=== PATIENT | male | born 1970 | race African-American/Black ===

== ENCOUNTER 2024-09-19 10:47 | Outpatient (AMB) | payer OTHER, SELFPAY ==
--- NOTE | 2024-09-19 10:56 | MHC.OFFVIS ---
Vital Signs 09/19/24 10:57 Height 5 ft 10 in Weight 243 lb BMI 34.9 BP 144/90 H Blood Pressure Location Lt brachial Position Sitting Respiration 18 Pulse 79 Pulse Source Pulse Oximeter Pulse Oximetry (%) 100 Oxygen Delivery Method Room Air Intake Visit Reasons: Neck pain Allergies No Known Allergies Allergy (Verified 09/19/24 10:55) HPI Comments Details: Kieran is very pleasant 54 years old gentleman who presents in my office with complains on pain in the posterior neck with radiation into bilateral shoulders as well as radiation into the or coinciding with pain in the epigastric area with radiation into bilateral under costal area as well as radiation into the lower thoracic spine. He reports that this pain started in 2018 when he hit his head against the metal door. He reports that abdominal pain also increases after greasy meals. Bowel movements not aggravate his pain in the abdomen. Flexing head forward and flexing had backwards aggravate the pain in the neck. Because of his pain he can not sleep normally can not do activities of daily living can not take care of himself he can not function normally. In terms of tissue damage he reports his pain as stabbing lancinating sharp cutting lacerating, pinching cramping crushing dull, hurting, heavy sensation. For his neck pain he went for multiple serious of physical therapy with no improvement. In fact physical therapy last time made his pain worse. He went for images of the cervical spine and it demonstrated bulging discs ?. He reports today that he has at home multiple images reports but he forgot to bring them with him today. He reports that he had multiple steroid injections with [facility] pain management those were steroid injections in his neck, he reported that it send his hemoglobin A1c to numbers above 9. He is very cautious about accepting steroid injections. His past medical history significant for diabetes reports that it is diet controlled. Past surgical history significant for ankle arthrodesis secondary to fracture, no other surgeries. He admits smoking cigarettes less than 1 pack per day. He drinks 5 cans of beer every other week, he admits coffee and caffeinated beverages but not soda, he admits cannabis he states that 1 joint lasts 3 days for him. Review of Systems Const All systems reviewed & are unremarkable except as noted in HPI and below ENT Reports Normal hearing present Neuro Reports Normal hearing present, Denies Abnormal speech present, Denies confusion and Denies Sensory deficit (Neuro) Psych Denies confusion Physical Exam Vital Signs: Last Vital Signs Pulse 79 09/19/24 10:57 Resp 18 09/19/24 10:57 BP 144/90 H 09/19/24 10:57 Pulse Ox 100 09/19/24 10:57 Oxygen Delivery Method Room Air 09/19/24 10:57 BMI result Body Mass Index 34.9 Const General: no acute distress; No confusion Orientation/consciousness: patient oriented x3 and No confusion Eyes General: appearance normal, both eyes and all related structures Pupils: Equal, round and reactive pupils present EOM: EOMs intact bilaterally Neck Neck: Yes full ROM Chest Chest palpation & inspection: normal inspection of the chest Resp Effort & Inspection: normal respiratory effort, able to speak in complete sentences, normal respiratory pattern, no audible wheezes and no cough Cardio Jugular venous distension: no JVD GI Other: Minor tenderness on palpation in the projection of the epigastric area, no guarding, no rebound. On percussion the liver is 3 cm below the costal margin. Nontender on palpation. Inspection: Yes normal to inspection Neuro General: patient oriented x3, gait normal and No confusion Cranial nerves: Yes CN's II-XII intact bilaterally, Yes Equal, round and reactive pupils present, Yes Normal hearing present and Yes Ability to bilaterally elevate shoulders present Speech: No Abnormal speech present Gait exam (Neuro): Normal gait present Motor exam (neuro): 5/5 motor strength present throughout Sensory Exam: No Sensory deficit (Neuro) Extrem General: No pedal edema Psych Speech and movement: Normal speech and movement present Affect: normal affect Attitude: cooperative Thought process: Normal thought process present Thought content: Normal thought content present Insight: Good insight present (Psych) Judgement: Good judgement present (Psych) Assessment & Plan Assessment & Plan (1) Chronic abdominal pain: Code(s): R10.9 - Unspecified abdominal pain; G89.29 - Other chronic pain Category: Medical (2) Spondylosis of cervical spine: Code(s): M47.812 - Spondylosis without myelopathy or radiculopathy, cervical region Category: Medical Plan: Because of the chronic abdominal pain which radiates into subcostal areas as well as into his back which possibly exacerbated by intake of greasy food I suspect that this patient might have pancreatitis. I will send him for lipase, amylase, CMP and CBC. I also will perform diagnostic medial branch block C4, C5, C6 bilateral to confirm my diagnosis of spondylosis of cervical spine. If this spondylotic diagnosis will be confirmed by the injection I will offer him sprint PNS. I will see this patient in 1 week to evaluate the results of the diagnostic blood studies as above. (3) Chronic pain syndrome: Code(s): G89.4 - Chronic pain syndrome Category: Medical Plan Next appointment in 1 week. Orders: Orders Lipase Today G89.29 - Other chronic pain, R10.9 - Unspecified abdominal pain Complete Blood Count Auto Diff Today G89.29 - Other chronic pain, R10.9 - Unspecified abdominal pain Comprehensive [place]. Panel Fast Today G89.29 - Other chronic pain, R10.9 - Unspecified abdominal pain Amylase Today G89.29 - Other chronic pain, R10.9 - Unspecified abdominal pain Patient Instructions: I here by testify that I spent 45 minutes in conversation with this patient as well as planning his care and organizing this note. Coding Level of Care Code New Pt Level 4 (27752) Diagnoses Chronic abdominal pain R10.9; G89.29 Spondylosis of cervical spine M47.812 Chronic pain syndrome G89.4
[2024-09-19 10:57] VITALS: BP 144/90; PULSE 79; RESP 18; O2SAT 100; BMI 34.9
--- OUTSIDE RECORDS SUMMARY | 2024-09-19 11:25 | XMS_ITS | Clinical Summary ---
Author Organization [facility] Address [address] [place] [address] Phone Care Team Providers Care Laboratory Tech Name Role Phone Chase Sykes MD Primary Care Provide r Allergies Active Allergy Reactions Criticality Noted Date Comments Bee Venom Protein (Honey Bee) 2023 Penicillins 02/14/2024 Medications oxyCODONE (ROXICODONE) 5 mg immediate release tabletIndication s:Chronic neck pain Take 1 tablet (5 mg total) by mouth every 8 (eight) hours if needed for severe pain. Max Daily Amount: 15 mg 12 tablet 06/29/2024 Active Active Problems No known active problems Encounters Date Type Department Care Team Description 07/14/2024 12:29 AM EDT - 07/14/2024 1:35 AM EDT Emergency [facility] Emergency [address] [place] [phone] Discharge Disposition: Home or Self Care 07/02/2024 7:55 PM EDT - 07/02/2024 10:53 PM EDT Emergency [facility] Emergency [address] [place] [phone] Chronic bilateral thoracic back pain (Primary Dx) Discharge Disposition: Home or Self Care 06/29/2024 9:58 PM EDT - 06/29/2024 10:22 PM EDT Emergency [facility] Emergency [address] [place] [phone] Chronic neck pain (Primary Dx) Discharge Disposition: Home or Self Care 06/25/2024 4:58 PM EDT - 06/25/2024 6:37 PM EDT Emergency [facility] Emergency [address] [place] [address] Discharge Disposition: Home or Self Care from Last 3 Months Surgical History Surgery Date Site/Laterality Comments ANKLE SURGERY 09/19/2014 Left PROCEDURE: HISTORICAL ANKLE SURGERY; COMMENT: Dr Briones- CHRISTIANO WISDOM TOOTH EXTRACTION PROCEDURE: HISTORICAL WISDOM TEETH EXTRACTION Medical History Medical History Date Comments Substance abuse ([facility] [place] , [facility] V28) 01/30/2017 DX:Substance abuse ([facility]); 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 PVD (peripheral vascular dis ease) ([facility] [place]24) 01/30/2017 DX:PVD (peripheral vascular disease) ([facility]) Pes planus 01/30/2017 DX:Pes planus Uncontrolled type 2 diabetes mellitus without complication, without long-term current use of insulin 01/31/2017 DX:Uncontrolled type 2 diabe nate mellitus without complication, without long-term current use of insulin HLD (hyperlipidemia) 07/24/2017 DX:HLD (hyp erlipidemia) TMJ (temporomandibular joint disorder) 8 DX:TMJ (temporomandibular joint disorder) Tobacco abuse 11/24/2018 DX:Tobacco abuse Family History Medical History Relation Name Comments Diabetes Aunt maternal No Known Problems Brother 1 No Known Problems Brother 2 Glaucoma Brother 3 Diabetes Father Prostate cancer Father No Known Problems Maternal Grandfather No Known Problems Maternal Grandmother Diabetes Mother No Known Problems Other No Known Problems Paternal Grandfather No Known Problems Paternal Grandmother No Known Problems Uncle Blindness Neg Hx Breast cancer Neg Hx Cataracts Neg Hx Macular degeneration Neg Hx Strabismus Neg Hx Relation Name Status Comments Aunt Brother 1 Alive Brother 2 Alive Brother 3 Alive Father Maternal Grandfather Maternal Grandmother Mother Alive Other Paternal Grandfather Paternal Grandmother Uncle Social History Tobacco Use Types Packs/Day Years Used Date Smoking Tobacco: Light Smoker Cigarettes Smokeless Tobacco: Never Alcohol Use Standard Drinks/Week Comments No 0 (1 standard drink = 0.6 oz pur e alcohol) Sex and Gender Information Value Date Recorded Sex Assigned at Male 06/17/2024 12:03 PM EDT Legal Sex Male 10:13 PM EST Gender Identity Male 06/17/2024 12:03 PM EDT Sexual Orientation Straight 06/17/2024 12 :03 PM EDT Obstetrics History Last Filed Vital Signs Vital Sign Reading Time Taken Comments Blood Pressure 173/101 07/14/2024 12:35 AM EDT Pulse 61 07/14/2024 12:35 AM EDT Temperature 36.9 C (98.4 F) 07/14/2024 12:35 AM EDT Respiratory Rate 16 07/14/2024 12:35 AM EDT Oxygen Saturation 95% 07/14/2024 12:35 AM EDT Inhaled Oxygen Concentration - - Weight 109 kg (241 lb) 07/14/2024 12:35 AM EDT Height 177.8 cm (5' 10 ) 07/14/2024 12:35 AM EDT Body Mass Index 34.58 07/14/2024 12:35 AM EDT Plan of Treatment Health Maintenance Due Date Last Done Comments Diabetes: Annual Foot Exam 1981 Diabetes: Annual Retina Eye Exam 1981 Hepatitis A Vaccines (1 of 2 - Risk 2-dose series) 1990 Hepatitis B Vaccines (1 of 3 - 19+ 3-dose series) 1990 Pneumococcal Vaccine: 50+ Years (2 of 2 - PCV) 04/25/2018 04/25/2017, 09/20/2014 COVID-19 Vaccine (3 - Pfizer risk series) 11/26/2020 10/29/2020, 10/07/2020 Zoster Vaccines (1 of 2) 2021 Colorectal Cancer Screening: Colonoscopy 02/05/2022 Depression Screening 02/05/2022 HIV Screening 02/05/2022 Social Influencers of Health Screening 02/05/2022 Diabetes: Annual Urine Albumin-Creatinine Ratio (uACR) 05/05/2023 05/04/2022 Diabetes: Blood Sugar Control Test (HGBA1C) 09/04/2024 03/07/2024, 01/02/2024 Influenza Vaccine (#1) 2024 9, 01/30/2017, 02/19/2016, Additional history exists Diabetes: Annual GFR (Glomerular Filtration Rate) 06/17/2025 06/17/2024, 05/26/2024, 03/07/2024, Additional history exists Cholesterol Screening (Lipid Panel) 05/05/2027 05/04/2022 DTaP,Tdap,and Td Vaccines (3 - Td or Tdap) 02/12/2029 02/12/2019, 10/19/2009 Hepatitis C Screening Completed 11/18/2021 HIB Vaccines Aged Out No longer eligi ble based on patient's age to complete this topic HPV Vaccines Aged Out No longer eligi ble based on patient's age to complete this topic IPV Vaccines Aged Out No longer eligi ble based on patient's age to complete this topic MMR Vaccines Aged Out No longer eligi ble based on patient's age to complete this topic Meningococcal ACWY Vaccine Aged Out N o longer eligible based on patient's age to complete this topic Meningococcal B Vaccine Aged Out No l onger eligible based on patient's age to complete this topic RSV Immunization Patients Under 20 months Aged Out No longer eligible based on patient's age to complete this topic Varicella Vaccines Aged Out No longer eligible based on patient's age to complete this topic Procedures Procedure Name Priority Date/Time Associated Diagnosis Comments COMPREHENSIVE METABOLIC PANEL STAT 06/17/2024 10:12 AM EDT from Last 3 Months or Most Recently Relevant to Health Maintenance Results * (ABNORMAL) Comprehensive metabolic panel (06/17/2024 10:12 AM EDT) Sodium 138 133 - 145 mmol/L LAB CHEMISTR[facility] Potassium 3.9 3.5 - 5.5 mmol/L LAB CHEMISTRY METHOD 06/17/2024 10:55 AM [facility] Chloride 104 96 - 110 mmol/L LAB CHEMISTRY METHOD 06/17/2024 10:55 AM [facility] CO2 30 21 - 32 mmol/L LAB CHEMISTRY METHOD 06/17/2024 10:55 AM [facility] Anion Gap 4 3 - 11 LAB CHEMISTRY METHOD 06/17/2024 10:55 AM [facility] Glucose 238(H) 70 - 100 mg/dL LAB CHEMISTRY METHOD 06/17/2024 10:55 AM [facility] BUN 14 5 - 25 mg/dL LAB CHEMISTRY METHOD 06/17/2024 10:55 AM [facility] Creatinine 0.88 0.70 - 1.30 mg/dL LAB CHEMISTRY METHOD 06/17/2024 10:55 AM [facility] eGFR 103 >=60 mL/min/1. 73m2 LAB CHEMISTRY METHOD 06/17/2024 10:55 AM [facility] Comment:Calculation based on the Chronic Kidney Disease Epidemiology Collaboration (CKD-EPI) equation refit without adjustment for race. BUN/Creatinine Ratio 15.9 LAB CHEMISTRY METHOD 06/17/2024 10:55 AM [facility] Calcium 9.7 8.5 - 10.5 mg/dL LAB CHEMISTRY METHOD 06/17/2024 10:55 AM [facility] AST (SGOT) 9(L) 10 - 42 unit/L LAB CHEMISTRY METHOD 06/17/2024 10:55 AM [facility] ALT (SGPT) 26 10 - 60 unit/L LAB CHEMISTRY METHOD 06/17/2024 10:55 AM [facility] Alkaline Phosphatase 129(H) 42 - 121 unit/L LAB CHEMISTRY METHOD 06/17/2024 10:55 AM [facility] Total Protein 7.4 6.0 - 8.0 g/dL LAB CHEMISTRY METHOD 06/17/2024 10:55 AM [facility] Albumin 3.5 3.2 - 5.0 g/dL LAB CHEMISTRY METHOD 06/17/2024 10:55 AM [facility] Total Bilirubin 0.3 0.0 - 1.4 mg/dL LAB CHEMISTRY METHOD 06/17/2024 10:55 AM [facility] Blood Venous blood specimen / Unknown Venipuncture / Unknown 06/17/2024 10:12 AM EDT 06/17/2024 10:17 AM EDT us Parker Doty MD LAB BLOOD ORDERABLES Final Resu lt [facility] [address] [place] [address], from Last 3 Months or Most Recently Relevant to Health Maintenance Insurance [facility] [employer] Care Teams Laboratory Tech Relationship Specialty Start Date End Date Chase Sykes MD [address] [place] [address] PCP - General Internal Medicine 02/15/24
== END 2024-09-19 11:22 | disposition home or self-care (01) ==
PROVIDERS: Visit Provider Anesthesiology
DX: R10.9 Unspecified abdominal pain (principal); G89.29 Other chronic pain; M47.812 Spondylosis without myelopathy or radiculopathy, cervical region; G89.4 Chronic pain syndrome
CPT/HCPCS: 99204

== ENCOUNTER 2024-09-19 10:47 | Outpatient (REF) | payer OTHER, SELFPAY ==
[2024-09-19 11:57] LABS: MANUAL DIFF FLAG NO
--- OUTSIDE RECORDS SUMMARY | 2024-09-19 12:16 | XMS_ITS | Encounter Summary ---
Author Organization [facility] Address [address] [place] [address] Care Team Providers Care Sql Server Dba Name Role Phone Jonel Ramirez MD Primary Care Provider [phone] Chetan Thomas MD Primary Care Provider Klaudia salvador Reason for Visit * Reason Onset Date Comments Testing 09/29/2020 Encounter Details Date Type Department Care Team Description 09/29/2020 Telephone Radiology - [address] [id number] Jonel Ramirez MD [address] [place] [address] Testing Social History Tobacco Use Types Packs/Day Years Used Date Smoking Tobacco: Light Smoker Cigarettes 0.5 Smokeless Tobacco: Never Comments:1 pack in a day Alcohol Use Standard Drinks/Week Comments No 0 (1 standard drink = 0.6 oz pur e alcohol) Sex Assigned at Date Recorded Not on file Job Start Date Occupation Industry Not on file Not on file Not on file documented as of this encounter Miscellaneous Notes * Telephone Encounter - Anita Kruger M.A - 09/29/2020 11:23 AM EDT Spoke to patient please call him to book CT scan of his chest. Patient already seen GI for his abdominal issues. * Telephone Encounter - Jonel Ramirez MD - 09/29/2020 11:13 AM EDT Please inform the patient that the CAT scan of the chest is ordered to follow-up on his lung nodules. This is a yearly surveillance and to make sure they have not increased in size. For any other abdominal issues, he can set up an appointment with my team to be evaluated. * Telephone Encounter - Monika Woods - 09/29/2020 10:58 AM EDT Called patient to book ct of chest but he says there is nothing wrong with his lungs but he is having intestinal problems that need to be dealt with. He would like a call back to see what is the nextstep. documented in this encounter Plan of Treatment Not on file documented as of this encounter Visit Diagnoses Not on filedocumented in this encounter Care Teams Sql Server D[employer] Relationship Specialty Start Date End Date Jonel Ramirez MD [address] [place] [id number] PCP - General Internal Medicine 08/14/17 12/09/20 Chetan Thomas MD [address] [place] [id number] PCP - General Internal Medicine 12/10/20 documented as of this encounter
--- OUTSIDE RECORDS SUMMARY | 2024-09-19 12:16 | XMS_ITS | Clinical Summary ---
Author Organization [facility] Address [address] [place] [address] Care Team Providers Care Manager Presentation Name Role Phone Jonel Ramirez MD Primary Care Provider [phone] Allergies Active Allergy Reactions Criticality Noted Date Comments Bee Sting 08/21/2018 Penicillins 08/21/2018 Medications Medication Sig Dispensed Refills Start Date End Date Status aspirin EC 81 MG tablet Take 81 mg by mouth daily. 0 Active METFORMIN HCL PO Take 500 mg by mouth 2 (two) times a day. 0 Active ATORVASTATIN CALCIUM PO Take by mouth. 0 Active METHADONE HCL PO Take 40 mg by mouth daily. 0 Active cholecalciferol (VITAMIN D3) 1000 units tablet Take 1,000 Units by mouth daily. 0 Active ibuprofen (ADVIL,MOTRIN) 200 MG tablet Take 800 mg by mouth every 6 (six) hours as needed for pain. 0 Active Active Problems No known active problems Social History Tobacco Use Types Packs/Day Years Used Date Smoking Tobacco: Every Day Smokeless Tobacco: Never Alcohol Use Standard Drinks/Week Comments No 0 (1 standard drink = 0.6 oz pur e alcohol) Sex and Gender Information Value Date Recorded Sex Assigned at Not on file Gender Identity Not on file Sexual Orientation Not on file Last Filed Vital Signs Vital Sign Reading Time Taken Comments Blood Pressure 140/83 05/30/2019 10:11 AM EDT Pulse 64 05/30/2019 10:11 AM EDT Temperature 36.4 C (97.5 F) 05/30/2019 10:11 AM EDT Respiratory Rate - - Oxygen Saturation - - Inhaled Oxygen Concentration - - Weight 124.9 kg (275 lb 6.4 oz) 020 10:11 AM EDT Height 177.8 cm (5' 10 ) 05/30/2019 10: 11 AM EDT Body Mass Index 39.52 05/30/2019 10:11 AM EDT Plan of Treatment Health Maintenance Due Date Last Done Comments Hepatitis B Vaccines (1 of 3 - 3-dose series) 1971 Hepatitis C Screening 1971 COVID-19 Vaccine (#1) 1971 Depression Screening 1983 Preventative Health Evaluation 1989 Tobacco Cessation Counseling 1989 Colon Cancer Screening (Colonoscopy) 02/23/2016 Pneumococcal Vaccine (2 of 2 - PCV) 04/25/2018 04/25/2017 Shingrix-Zoster Vaccine (1 o f 2) 2021 Influenza Vaccine (#1) 2024 9, 01/30/2017 DTap / Tdap / Td (2 - Td or Tdap) 02/12/2029 02/12/2019 RSV Ped < 20 months Aged Out No longe r eligible based on patient's age to complete this topic Care Teams Manager Presentation Relationship Specialty Start Date End Date Jonel Ramirze MD [address] [place] [id number] PCP - General Internal Medicine 08/21/18
[2024-09-19 12:22] LABS: Hematocrit 36.2 % (42.0-52.0); Hemoglobin 11.5 g/dl (14.0-18.0); Imm Gran Abs Auto 0.07 X10*3/uL (0.00-0.03); Imm Gran Pct Auto 0.9 % (0.0-0.4); Lymphocytes Absolute Auto 2.3 X10*3/uL (1.2-4.9); Mean Corpuscular HGB Conc 31.8 g/dl (31.0-36.0); Mean Corpuscular Hemoglobin 30.5 pg (27.0-33.0); Mean Corpuscular Volume 96.0 fL (80.0-98.0); NRBC Abs Auto 0.000 X10*3/uL (0.0-0.012); NRBC Pct Auto 0.0 /100WBC (0.0-0.2); Platelet Count 180 X10*3/uL (160-400); Red Blood Count 3.77 X10*6/uL (4.60-5.80); White Blood Count 7.7 X10*3/uL (4.8-10.8)
[2024-09-19 12:49] LABS: Alanine Aminotransferase 38 U/L (0-40); Albumin Level 4.3 g/dL (3.5-5.0); Alkaline Phosphatase 151 U/L (39-117); Amylase 48 U/L (28-100); Anion Gap 10 (12-20); Aspartate Amino Transferase 26 U/L (5-37); Blood Urea Nitrogen 16 mg/dL (9-16); Calcium 9.4 mg/dL (8.4-10.2); Carbon Dioxide 30 mmol/L (22-29); Chloride 106 mmol/L (96-108); Estimated Glomerular Filt Rate > 60; Lipase 23 U/L (8-78); Potassium 3.9 mmol/L (3.3-5.1); Sodium 142 mmol/L (135-145); Total Protein 7.6 g/dL (6.5-8.0)
== END 2024-09-19 10:48 | disposition home or self-care (01) ==
LOC: HO.LAB 10:47
PROVIDERS: Visit Provider Anesthesiology
DX: M47.812 Spondylosis without myelopathy or radiculopathy, cervical region (principal); M54.2 Cervicalgia; R10.13 Epigastric pain; G89.4 Chronic pain syndrome
CPT/HCPCS: 36415; 80053; 82150; 83690; 85025; 99202

== ENCOUNTER 2024-09-26 11:55 | Outpatient (AMB) | payer OTHER, SELFPAY ==
--- NOTE | 2024-09-26 11:59 | A.OFFVIS_ITS ---
Vital Signs 09/26/24 12:00 Weight 243 lb BP 167/85 H Blood Pressure Location Lt brachial Position Sitting Respiration 20 Pulse 76 Pulse Source Pulse Oximeter Pulse Oximetry (%) 94 Oxygen Delivery Method Room Air Intake Visit Reasons: 1 week Irrigation Foreman Required: No Allergies No Known Allergies Allergy (Verified 09/26/24 11:59) HPI Comments Details: Kieran is back in my office 1 week after I sent him for battery of lab tests to rule out pancreatitis. Amylase and lipase are normal, therefore patient does not have pancreatitis. His epigastric pain therefore is not related to pancreatitis however his alk phos is elevated. It maybe related to bowel obstruction. I recommended him to go to his primary care physician and have him to work him up for the gallstones or CBD stenosis. As of his cervical pain he brought today report of the MRI he had done at [facility]. The full report of the MRI dictated as below. It is very prominent for multilevel severe foraminal stenosis and moderate spinal canal stenosis. At the same time role of spondylosis in his pain syndrome can not be excluded. I schedule him for diagnostic medial branch block, C4-C5 C6 bilateral. He requests me to send him for 2nd opinion with neurosurgeon. I need to send him for fresh MRI to perform this consult because his MRI is 9-month-old. Prior: complains on pain in the posterior neck with radiation into bilateral shoulders as well as radiation into the or coinciding with pain in the epigastric area with radiation into bilateral under costal area as well as radiation into the lower thoracic spine. He reports that this pain started in 2018 when he hit his head against the metal door. He reports that abdominal pain also increases after greasy meals. Bowel movements not aggravate his pain in the abdomen. Flexing head forward and flexing had backwards aggravate the pain in the neck. Because of his pain he can not sleep normally can not do activities of daily living can not take care of himself he can not function normally. For his neck pain he went for multiple serious of physical therapy with no improvement. In fact physical therapy last time made his pain worse. He went for images of the cervical spine and it demonstrated bulging discs ?. He reports today that he has at home multiple images reports but he forgot to bring them with him today. He reports that he had multiple steroid injections with [facility] pain management those were steroid injections in his neck, he reported that it send his hemoglobin A1c to numbers above 9. He is very cautious about accepting steroid injections. His past medical history significant for diabetes reports that it is diet controlled. Past surgical history significant for ankle arthrodesis secondary to fracture, no other surgeries. He admits smoking cigarettes less than 1 pack per day. He drinks 5 cans of beer every other week, he admits coffee and caffeinated beverages but not soda, he admits cannabis he states that 1 joint lasts 3 days for him. Review of Systems Const All systems reviewed & are unremarkable except as noted in HPI and below ENT Reports Normal hearing present Neuro Reports Normal hearing present, Denies Abnormal speech present, Denies confusion and Denies Sensory deficit (Neuro) Psych Denies confusion Physical Exam Vital Signs: Last Vital Signs Pulse 76 09/26/24 12:00 Resp 20 09/26/24 12:00 BP 167/85 H 09/26/24 12:00 Pulse Ox 94 09/26/24 12:00 Oxygen Delivery Method Room Air 09/26/24 12:00 Const General: no acute distress; No confusion Orientation/consciousness: patient oriented x3 and No confusion Eyes General: appearance normal, both eyes and all related structures Pupils: Equal, round and reactive pupils present EOM: EOMs intact bilaterally Neck Other: Limited range of motion of the cervical spine. Axial compression aggravates the pain, flexing had backwards aggravate the pain. Chest Chest palpation & inspection: normal inspection of the chest Resp Effort & Inspection: normal respiratory effort, able to speak in complete sentences, normal respiratory pattern, no audible wheezes and no cough Cardio Jugular venous distension: no JVD GI Other: Minor tenderness on palpation in the projection of the epigastric area, no guarding, no rebound. On percussion the liver is 3 cm below the costal margin. Nontender on palpation. Inspection: Yes normal to inspection Neuro General: patient oriented x3, gait normal and No confusion Cranial nerves: Yes CN's II-XII intact bilaterally, Yes Equal, round and reactive pupils present, Yes Normal hearing present and Yes Ability to bilaterally elevate shoulders present Speech: No Abnormal speech present Gait exam (Neuro): Normal gait present Motor exam (neuro): 5/5 motor strength present throughout Sensory Exam: No Sensory deficit (Neuro) Extrem General: No pedal edema Psych Speech and movement: Normal speech and movement present Affect: normal affect Attitude: cooperative Thought process: Normal thought process present Thought content: Normal thought content present Insight: Good insight present (Psych) Judgement: Good judgement present (Psych) Results Reviewed Results Reviewed: Cervical spine MRI [facility] 01/22/2024. Findings: Cervical lordosis is straightened. Thoracic kyphosis is maintained. Vertebral body heights are preserved. Abnormal marrow signal throughout the cervical and thoracic spine with T2 star hyperintensity most notable at the C4- T1 and T8-T9 vertebral bodies. Slight increased since prior of MRI of 2022. Multifocal areas of T1 and T2 hypointensity suggest sclerosis. Partial disc space height loss and disc desiccation throughout the cervical and thoracic spine. Evaluation of the cord signal abnormalities is limited although no definite focal signal abnormalities present. Suggestion of the congenital narrowing of the spinal canal. Superimposed posterior disc osteophyte complex disease uncovertebral and facet arthropathy throughout the cervical spine resulting in canal and foraminal narrowing described below. C2-C3: Mild canal narrowing moderate right foraminal narrowing. C3-C4 moderate canal narrowing: Severe bilateral foraminal narrowing, right worse than left. C4-C5 moderate canal narrowing. Severe bilateral foraminal narrowing. C5-C6: Moderate canal narrowing. Severe bilateral foraminal narrowing right worse than left. C6-C7 moderate canal narrowing. Severe bilateral foraminal narrowing. C7-T1 moderate canal narrowing. Moderate to severe bilateral foraminal narrowing. Small multilevel disc and facet arthropathy results in mild multilevel canal narrowing throughout the thoracic spine. Up to moderate narrowing of the right T2-T3 right T3-T4 right T4-T5 right T6-T7 bilateral T7-T8 right T8-T9 and right T11-T12 foramina. Narrowing is greatest at right T2- T3 and T3-T4 and bilateral T7-T8. Assessment & Plan Assessment & Plan (1) Chronic abdominal pain: Code(s): R10.9 - Unspecified abdominal pain; G89.29 - Other chronic pain Category: Medical (2) Spondylosis of cervical spine: Code(s): M47.812 - Spondylosis without myelopathy or radiculopathy, cervical region Category: Medical Plan: Her abdominal pain condition could be result of the thoracic foraminal narrowing. So is the painful cervical spine. I decided to send this patient for neurosurgical consult. This patient needs to have repeated fresh MRI to be done for neurosurgical consult. Meanwhile to detect involvement of the spondylosis in his cervicalgia cervical pain I will schedule him for diagnostic medial branch block C4, C5, C6. (3) Chronic pain syndrome: Code(s): G89.4 - Chronic pain syndrome Category: Medical Plan I will see this patient for medial branch blocks as they were planned before. I will see him after consultation with Dr. Antunez as well. Orders: Orders MR cervical spine wo con Today G89.4 - Chronic pain syndrome, M47.812 - Spondylosis without myelopathy or radiculopathy, cervical region Referrals Neurosurgery Referral M47.812 - Spondylosis without myelopathy or radiculopathy, cervical region Patient Instructions: I here by testify that I spent 32 minutes in conversation with this patient as well as planning his care and organizing this note Coding Level of Care Code Est Pt Level 4 (76507) Diagnoses Chronic abdominal pain R10.9; G89.29 Spondylosis of cervical spine M47.812 Chronic pain syndrome G89.4
[2024-09-26 12:00] VITALS: BP 167/85; PULSE 76; RESP 20; O2SAT 94
--- OUTSIDE RECORDS SUMMARY | 2024-09-26 12:40 | XMS_ITS | Clinical Summary ---
Author Organization [facility] Address [address] [place] [address] Phone Care Team Providers Care Colloid Mill Operator Name Role Phone Chase Sykes MD Primary [...] EDT - 07/14/2024 1:35 AM EDT Emergency [facility] Emergency [address] [place] [phone] Discharge Disposition: Home or Self Care 07/02/2024 7:55 PM EDT - 07/02/2024 10:53 PM EDT Emergency [facility] Emergency [address] [place] [phone] Chronic bilateral thoracic back pain (Primary Dx) Discharge Disposition: Home or Self Care 06/29/2024 9:58 PM EDT - 06/29/2024 10:22 PM EDT Emergency [facility] Emergency [address] [place] [phone] Chronic neck pain (Primary Dx) Discharge Disposition: Home or Self Care from Last 3 Months Surgical History Surgery Date Site/Laterality Comments ANKLE SURGERY 09/19/2014 Left PROCEDURE: HISTORICAL ANKLE SURGERY; COMMENT: Dr Briones- CHRISTIANO WISDOM TOOTH EXTRACTION PROCEDURE: HISTORICAL WISDOM TEETH EXTRACTION Medical History Medical History Date Comments Substance abuse ([facility] V24 , [facility] V28) 01/30/2017 DX:Substance abuse ([facility]); 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 PVD (peripheral vascular dis ease) ([facility] V24) 01/30/2017 DX:PVD (peripheral vascular disease) ([facility]) Pes planus 01/30/2017 DX:Pes planus Uncontrolled type [...] 2) 2021 Colorectal Cancer Screening: Colonoscopy 02/05/2022 HIV Screening 02/05/2022 Social Influencers of Health Screening 02/05/2022 Diabetes: Annual Urine Albumin-Creatinine Ratio (uACR) 05/05/2023 05/04/2022 Depression Screening 03/06/2024 Diabetes: Blood Sugar Control Test (HGBA1C) 09/04/2024 [...] mmol/L LAB CHEMISTRY METHOD 06/17/2024 10:55 AM [facility] Potassium 3.9 3.5 - 5.5 mmol/L LAB CHEMISTRY METHOD 06/17/2024 10:55 AM [facility] Chloride 104 96 - 110 mmol/L LAB CHEMISTRY METHOD 06/17/2024 10:55 AM [facility] CO2 30 21 - 32 mmol/L LAB CHEMISTRY METHOD 06/17/2024 10:55 AM [facility] Anion Gap 4 3 - 11 LAB CHEMISTRY METHOD 06/17/2024 10:55 AM [facility] Glucose 238(H) 70 - 100 mg/dL LAB CHEMISTRY METHOD 06/17/2024 10:55 AM [facility] BUN 14 5 - 25 mg/dL LAB CHEMISTRY METHOD 06/17/2024 10:55 AM [facility] Creatinine 0.88 0.70 - 1.30 mg/dL LAB CHEMISTRY METHOD 06/17/2024 10:55 AM [facility] eGFR 103 >=60 mL/min/1. 73m2 LAB CHEMISTRY METHOD 06/17/2024 10:55 AM [facility] Comment:Calculation based on the Chronic Kidney Disease Epidemiology Collaboration (CKD-EPI) equation refit without adjustment for race. BUN/Creatinine Ratio 15.9 LAB CHEMISTRY METHOD 06/17/2024 10:55 AM [facility] Calcium 9.7 8.5 - 10.5 mg/dL LAB CHEMISTRY METHOD 06/17/2024 10:55 AM [facility] AST (SGOT) 9(L) 10 - 42 unit/L LAB CHEMISTRY METHOD 06/17/2024 10:55 AM [facility] ALT (SGPT) 26 10 - 60 unit/L LAB CHEMISTRY METHOD 06/17/2024 10:55 AM [facility] Alkaline Phosphatase 129(H) 42 - 121 unit/L LAB CHEMISTRY METHOD 06/17/2024 10:55 AM [facility] Total Protein 7.4 6.0 - 8.0 g/dL LAB CHEMISTRY METHOD 06/17/2024 10:55 AM [facility] Albumin 3.5 3.2 - 5.0 g/dL LAB CHEMISTRY METHOD 06/17/2024 10:55 AM [facility] Total Bilirubin 0.3 0.0 - 1.4 mg/dL LAB CHEMISTRY METHOD 06/17/2024 10:55 AM [facility] Blood Venous blood specimen / Unknown Venipuncture / Unknown 06/17/2024 10:12 AM EDT 06/17/2024 10:17 AM EDT us Parker Doty MD LAB BLOOD ORDERABLES Final [facility] [address] [place] [address], from Last 3 Months or Most Recently Relevant to Health Maintenance Insurance [facility] [employer] Care Teams Colloid Mill Operator Relationship Specialty Start Date End Date Chase Sykes MD [address] [place] [address] PCP - General Internal Medicine 02/15/24
--- OUTSIDE RECORDS SUMMARY | 2024-09-26 12:40 | XMS_ITS | Clinical Summary ---
Author Organization [employer] [facility] Address [email or web address] [place] [id number] Phone Care Team Providers Care Process Engineering Manager Name Role Phone King Bowser MD Unavailable [phone] Mane Hahn MD Primary Care Provider Allergies Active Allergy Reactions Criticality Noted Date Comments Gabapentin GI Upset 03/16/2011 Nortriptyline Nausea Only,Vomiting 03/16/2011 Nsaids (Non-Steroidal Anti-Inflammatory Drug) GI Upset 03/16/2011 aleeve, ibuprofen Penicillins Hives 03/16/2011 Active Problems Problem Noted Date Diagnosed Date Disorder of bone 07/13/2011 Overview (04/26/2014): Disorder of bone - osteomyelitis Immunizations Immunization Administration Dates Next Due Influenza, Unspecified Formulation 02/07/2012 Social History Tobacco Use Types Packs/Day Years Used Date Smoking Tobacco: Every Day Cigarettes Comments:Smoking History Pac ks/day: <=0.5 Education Answer Date Recorded Are you interested in more education? Not on chetan e 07/17/2022 Are you concerned about learning? Not on file 07/17/2022 No 07/17/2022 No 07/17/2022 Digital Access Answer Date Recorded No 07/31/2022 No 07/31/2022 No 07/31/2022 Reliable internet access at home? Not on file 07/31/2022 Device with a working camera? Not on file Sex and Gender Information Value Date Recorded Sex Assigned at Not on file Legal Sex Male 6:10 PM EST Gender Identity Not on file Sexual Orientation Not on file Last Filed Vital Signs Vital Sign Reading Time Taken Comments Blood Pressure 134/73 10/13/2014 1:56 PM EDT Pulse 69 10/13/2014 1:56 PM EDT Temperature 36.2 C (97.2 F) 06/21/2012 12:00 AM EDT Respiratory Rate 20 06/21/2012 12:00 AM EDT Oxygen Saturation 99% 06/21/2012 12:00 AM EDT Inhaled Oxygen Concentration - - Weight 117.9 kg (260 lb) 01/28/2015 11:41 AM EST Height 177.8 cm (5' 10 ) 01/28/2015 11:41 AM EST Body Mass Index 37.31 01/28/2015 11:41 AM EST Plan of Treatment Health Maintenance Due Date Last Done Comments DEPRESSION SCREENING 1983 SMOKING Hx and SMOKELESS TOBACCO SCREENING 02/23/1984 HEPATITIS C SCREENING 1989 HIV ONE-TIME SCREENING (18-6 5 YEARS) 1989 COLOGUARD 02/23/2016 COLONOSCOPY 02/23/2016 COLORECTAL CANCER SCREENING 02/23/2016 FIT TEST 02/23/2016 FOBT 02/23/2016 SIGMOIDOSCOPY 02/23/2016 VIRTUAL COLONOSCOPY 02/23/2016 PNEUMOCOCCAL VACCINES (50+ years) (2 of 2 - PCV) 04/25/2018 04/25/2017 ZOSTER VACCINES (1 of 2) 2021 LIPID PANEL 07/24/2022 07/24/2017 COVID-19 VACCINE (3 - 2023-2 5 season) 2023 10/29/2020, 10/07/2020 Adult Td,Tdap Booster 02/12/2029 02/12/2019 HEPATITIS A VACCINES Aged Out No long er eligible based on patient's age to complete this topic HIB VACCINES Aged Out No longer eligi ble based on patient's age to complete this topic MENINGOCOCCAL VACCINES (ACWY) Aged Out No longer eligible based on patient's age to complete this topic MENINGOCOCCAL VACCINES (B) Aged Out N o longer eligible based on patient's age to complete this topic Medical Devices Not on file Insurance [facility] [employer] Member Subscriber Plan / Payer (Ef fective 2017-Present) Name:Kieran Lara Relation to Subscriber:Self Name:Kieran Lara Payer ID:[id number] Group ID:[id number] Type:Medicaid Address: [address] [place] [address] [facility] [employer] Member Subscriber Plan / Payer (Ef fective 2017-Present) Name:Kieran Lara Relation to Subscriber:Self Name:Kieran Lara Payer ID:[id number] Group ID:[id number] Type:Medicaid Address: [address] [place] [address] [facility] [employer] Member Subscriber Plan / Payer (Ef fective 2017-Present) Name:Kieran Lara Relation to Subscriber:Self Name:MarcoKieran browne Payer ID:[id number] Group ID:[id number] Type:Medicaid Address: [address] [place] [address] [place], [place] [address] A[employer] Member Subscriber Plan / Payer (Ef fective 2017-Present) Name:MarcoKieran browne Relation to Subscriber:Self Name:Kieran Lara Payer ID:[id number] Group ID:[id number] Type:Medicaid Address: [address] [place] [address] [facility] [employer] Member Subscriber Plan / Payer (Ef fective 2017-Present) Name:Marco Kieran Relation to Subscriber:Self Name:MarcoKieran browne Payer ID:[id number] Group ID:[id number] Type:Medicaid Address: [address] [place] [address] [place], [place] [address] [place] [address] [place] [address] [employer] Care Teams Process Engineering Manager Relationship Specialty Start Date End Date King Bowser MD [address] [place] [address] PCP - Resident PCP 09/03/13 Mane Hahn MD [address] [place] [address] PCP - General Hematology 11/18/14 Additional Source Comments The information contained in this document represents components of the legal health record. It is not the complete legal health record.[facility]
--- OUTSIDE RECORDS SUMMARY | 2024-09-26 12:40 | XMS_ITS | Clinical Summary ---
Author Organization [facility] Address [address] [place] [address] Care Team Providers Care Diesel Locomotive Crane Operator Name Role Phone Jonel Ramirez MD Primary Care Provider [phone] Allergies Active Allergy Reactions Criticality Noted Date [...] age to complete this topic Care Teams Diesel Locomotive Crane Operator Relationship Specialty Start Date End Date Jonel Ramirez MD [address] [place] [id number] PCP - General Internal Medicine 08/21/18
== END 2024-09-26 12:30 | disposition home or self-care (01) ==
LOC: HO.PMC 11:55
PROVIDERS: Visit Provider Anesthesiology
DX: R10.9 Unspecified abdominal pain (principal); G89.29 Other chronic pain; M47.812 Spondylosis without myelopathy or radiculopathy, cervical region; G89.4 Chronic pain syndrome
CPT/HCPCS: 99214

== ENCOUNTER → 2024-09-26 11:55 | Outpatient (BNVA) | payer OTHER, SELFPAY | PROVIDERS: Visit Provider Anesthesiology | DX: M47.812 Spondylosis without myelopathy or radiculopathy, cervical region (principal); G89.4 Chronic pain syndrome; R10.9 Unspecified abdominal pain | CPT/HCPCS: 99212 ==

== ENCOUNTER → 2024-11-03 11:47 | Outpatient (BNV) | payer OTHER, SELFPAY | PROVIDERS: Visit Provider Radiology Diagnostic Radiology | DX: M47.22 Other spondylosis with radiculopathy, cervical region (principal) | CPT/HCPCS: 72141 ==

== ENCOUNTER 2024-11-03 11:52 | Outpatient (REF) | payer OTHER, SELFPAY ==
--- NOTE | ~2024-11-03 | MR_ITS ---
EXAMINATION: MR CERVICAL SPINE WITHOUT CONTRAST CLINICAL INFORMATION: Spondylosis without myelopathy or radiculopathy, cervical region. COMPARISON: None available. TECHNIQUE: MRI of the cervical spine was obtained using routine sequences without contrast. FINDINGS: Patient's motion artifact. Craniocervical junction is intact with normal position of the cerebellar tonsils. There is an intrinsic hyperintense T1 signal at the endplates of C6-7 and to a lesser extent C5-6. Multilevel marginal osteophyte formation and disc desiccation from C2 to T3 pronounced at C6-7. Grade 1 retrolisthesis C5-6. Reverse curvature apex at C3-4. Grade 1 anterolisthesis C7-T1. The cervical spinal cord signal is normal. C2-3: Broad-based disc osteophyte compresses formation. No cord compression. No neuroforamina stenosis. C3-4: Broad-based disc osteophyte complex formation abutting the spinal cord. No cord signal abnormality. Bilateral neuroforamina stenosis on a degenerative basis. C4-5: Broad-based disc osteophyte complex formation abutting the cord without cord signal abnormality. Bilateral neuroforamina stenosis on a degenerative basis. C5-6: Broad-based disc osteophyte complex formation resulting in CSF effacement of the thecal sac. No cord signal abnormality. Bilateral neuroforamina stenosis on a degenerative basis. C6-7: Broad-based disc osteophyte compresses formation abutting the cord without cord signal abnormality. Bilateral neuroforamina stenosis on a degenerative basis. C7-T1: Broad-based disc osteophyte compresses formation resulting in ventral deformity of the thecal sac. Bilateral neuroforamina narrowing on a degenerative basis. No prevertebral compartment hematoma, mass or fluid collection. Flow-void signal within the main vessels is normal. Left vertebral artery is dominant. MR/MR cervical spine wo con IMPRESSION: Multilevel cervical spondylosis C3-4 to C7-T1 resulting in central spinal canal and bilateral neuroforamina stenosis encroaching and possibly compressing the exiting nerve roots. No cord edema and or myelopathy. Electronically signed by: Danilo Freeman MD 11/04/2024 10:59 AM EDT
--- OUTSIDE RECORDS SUMMARY | 2024-11-03 11:56 | XMS_ITS | Clinical Summary ---
Author Organization [employer] [facility] Address [address] [place] [address] Phone Care Team Providers Care Remarketing Rep Name Role Phone King Bowser MD Unavailable [phone] Mane Hahn MD Primary Care Provider Allergies [...] - 2023-2 5 season) 2023 10/29/2020, 10/07/2020 INFLUENZA VACCINE (#1) 2024 9, 01/30/2017, 02/07/2012 Adult Td,Tdap Booster 02/12/2029 02/12/2019 HEPATITIS A [...] topic Medical Devices Not on file Insurance [employer] [address] [place], [place] [address] [address] [address] [place] [address] [place] [employer] [place] [address] Care Teams Remarketing Rep Relationship Specialty Start Date End Date King Bowser MD [address] [place] [address] PCP - Resident PCP 09/03/13 Mane Hahn MD [address] [place] [address] PCP - General Hematology 11/18/14 Additional Source Comments The information contained in this document represents components of the legal health record. It is not the complete legal health record.[facility]
--- OUTSIDE RECORDS SUMMARY | 2024-11-03 11:56 | XMS_ITS | Clinical Summary ---
Author Organization [facility] Address [address] [place] [address] Phone Care Team Providers Care Sewer Maintenance Supervisor Name Role Phone Chase Sykes MD Primary [...] Active Active Problems No known active problems Surgical History Surgery Date Site/Laterality Comments ANKLE SURGERY 09/19/2014 Left PROCEDURE: HISTORICAL ANKLE SURGERY; COMMENT: Dr Briones- CHRISTIANO WISDOM TOOTH EXTRACTION PROCEDURE: HISTORICAL WISDOM TEETH EXTRACTION Medical History Medical History Date Comments Substance abuse ([facility] V24 , [facility] V28) 01/30/2017 DX:Substance abuse (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 V24) 01/30/2017 DX:PVD (peripheral vascular disease) ([facility]) Pes planus 01/30/2017 DX:Pes planus Uncontrolled type [...] mmol/L LAB CHEMISTRY METHOD 06/17/2024 10:55 AM [facility] Potassium 3.9 3.5 - 5.5 mmol/L LAB CHEMISTRY METHOD 06/17/2024 10:55 AM [facility] Chloride 104 96 - 110 mmol/L LAB CHEMISTRY METHOD 06/17/2024 10:55 AM [facility] CO2 30 21 - 32 mmol/L LAB CHEMISTRY METHOD 06/17/2024 10:55 AM [facility] Anion Gap 4 3 - 11 LAB CHEMISTRY METHOD 06/17/2024 10:55 AM [facility] Glucose 238(H) 70 - 100 mg/dL LAB CHEMISTRY METHOD 06/17/2024 10:55 AM [facility] BUN 14 5 - 25 mg/dL LAB CHEMISTRY METHOD 06/17/2024 10:55 AM [facility] Creatinine 0.88 0.70 - 1.30 mg/dL LAB CHEMISTRY METHOD 06/17/2024 10:55 AM [facility] eGFR 103 >=60 mL/min/1. 73m2 LAB CHEMISTRY METHOD 06/17/2024 10:55 AM [facility] Comment:Calculation based on the Chronic Kidney Disease Epidemiology Collaboration (CKD-EPI) equation refit without adjustment for race. BUN/Creatinine Ratio 15.9 LAB CHEMISTRY METHOD 06/17/2024 10:55 AM [facility] Calcium 9.7 8.5 - 10.5 mg/dL LAB CHEMISTRY METHOD 06/17/2024 10:55 AM [facility] AST (SGOT) 9(L) 10 - 42 unit/L LAB CHEMISTRY METHOD 06/17/2024 10:55 AM [facility] ALT (SGPT) 26 10 - 60 unit/L LAB CHEMISTRY METHOD 06/17/2024 10:55 AM [facility] Alkaline Phosphatase 129(H) 42 - 121 unit/L LAB CHEMISTRY METHOD 06/17/2024 10:55 AM [facility] Total Protein 7.4 6.0 - 8.0 g/dL LAB CHEMISTRY METHOD 06/17/2024 10:55 AM [facility] Albumin 3.5 3.2 - 5.0 g/dL LAB CHEMISTRY METHOD 06/17/2024 10:55 AM [facility] Total Bilirubin 0.3 0.0 - 1.4 mg/dL LAB CHEMISTRY METHOD 06/17/2024 10:55 AM [facility] Blood Venous blood specimen / Unknown Venipuncture / Unknown 06/17/2024 10:12 AM EDT 06/17/2024 10:17 AM EDT Parker Doty MD LAB BLOOD ORDERABLES Final Resu lt [facility] [address] [place] [address], from Last 3 Months or Most Recently Relevant to Health Maintenance Insurance [facility] [employer] Care Teams Sewer Maintenance Supervisor Relationship Specialty Start Date [place] [address] PCP - General Internal Medicine 02/15/24
--- OUTSIDE RECORDS SUMMARY | 2024-11-03 11:56 | XMS_ITS | Clinical Summary ---
[facility] Organization [facility] Address [address] [place] [address] Care Team Providers Care Pre Wave Assembler Name Role Phone Jonel Ramirez MD Primary Care Provider [phone] Allergies Active Allergy Reactions Criticality Noted Date [...] age to complete this topic Care Teams Pre Wave Assembler Relationship Specialty Start Date End Date Jonel Ramirez MD [address] [place] [id number] PCP - General Internal Medicine 08/21/18
== END 2024-11-03 11:53 | disposition home or self-care (01) ==
LOC: HO.MRI 11:52
PROVIDERS: Visit Provider Anesthesiology
DX: M47.812 Spondylosis without myelopathy or radiculopathy, cervical region (principal); G89.4 Chronic pain syndrome
CPT/HCPCS: 72141

== ENCOUNTER 2024-11-11 13:56 | Outpatient (AMB) | payer OTHER, SELFPAY ==
[2024-11-11 14:05] VITALS: BMI 35.7
--- NOTE | 2024-11-11 14:05 | HO.SPINEOV ---
Vital Signs 11/11/24 14:05 Height 5 ft 10 in Weight 249 lb BMI 35.7 Intake Visit Reasons: neck pain Intake Note: Mr. Lara is here today c/o neck pain that radiates to the chest and arms causing numbness to fingers. Coremaker Apprentice Required: No Allergies No Known Allergies Allergy (Verified 11/11/24 14:05) Physical Exam Vital Signs: BMI result Body Mass Index 35.7 Assessment & Plan Assessment & Plan (1) Cervical radiculopathy: Code(s): M54.12 - Radiculopathy, cervical region Category: Medical Plan Dear Dr. Teresa, Thank you for referring Kieran to our office today. He is a pleasant 54-year-old male who comes in today for evaluation of neck pain and occasional shooting pains into his bilateral upper extremities, left side worse than right. In addition to this he reports some pain near the epigastric area that wraps around from his back towards the center of his chest/sternum area. He reports that this wrapping pain has been ongoing for at least the past 3 years, after he felt a pop in his back while walking his dog. His neck pain has been ongoing since 2018. He identifies an inciting incident and states that he was mopping a floor when he slipped forward and went head-first into a metal door. His neck pain was more low-grade in nature until about 2 years ago when it began significantly affecting his activity these of daily living. In terms of the shooting pain into his bilateral upper extremities, he is unable to identify the exact distribution of this pain, but states that it goes down his entire arm on both sides typically with increased activity. He does report bilateral hand numbness, and states he is not able to engage the strength in his hands as he previously was able to. He does state that he has some issues with falls at home, and most recently as needed to utilize a cane or the occasional walker in order to get around. If he does try to ambulate independently it has to be for short distances such as from his car into the office today, where he knows he can sit down and or grab onto things so he won't fall. He denies any issues with fine motor movements such as zipping a zipper or buttoning buttons. He does feel like he has functionally declined in his unable to perform basic activities like bathing himself/wiping himself after using the bathroom, for which he has obtained a [employer]. His neck pain has now progressed to the point where he is in pain all throughout the day, and occasionally wakes up overnight in pain. He is taking 800 mg of ibuprofen at least 3 times daily to help mitigate the pain. He has attempted to utilize Tylenol/pain patches in the past however it does not find them helpful. He has been to physical therapy in the past for this issue, however reports that this only worsened his neck pain. He also has attempted cortisone injections in the past, which he states provided no pain relief. PMH: No incoming medical records for the patient, he discloses a Hx of Left ankle surgery, T2DM with last A1C reported as 6.1 down from 8.2. He denies any other medical issues. Social hx: Patient smokes cigarettes and uses cannabis recreationally. He denies any other substance use. Medications: Ibuprofen, Tylenol. Allergies: PCN Physical exam: The patient has about 4/5 strength with bilateral iliopsoas testing and hand wrapping machine tender. His upper and lower extremity strength is 5/5 elsewhere. He ambulates slowly and carefully. He appears to be compensating to try and not fall while ambulating, so assessing for gait disturbance such as antalgic gait or spastic gait was difficult. Left patella reflex is 1+ hypoactive. The rest of his reflexes are 2+ intact. He has no significant sensational deficits to light touch on examination aside from bilateral hand numbness. (-) bilateral Davenport's, (-) bilateral clonus, (-) bilateral straight leg raise. Imaging review: MRI of the cervical spine was completed here at [facility]. It shows severe motion degraded artifact on axial T2 imaging, however the axial T2 warp view appears fairly clear. The patient has multilevel spondylosis with loss of normal cervical lordosis. There is severe disc degeneration at C6-7, with some anterior osteophyte bridging indicative of possible auto fusion at these levels. There are varying levels of severe stenosis throughout the cervical spine, most notable at C5-6, C6-7 where there is severe spinal cord compression severe bilateral foraminal stenosis. The radiology report does not grade the levels of stenosis at any of the levels. Impression: Kieran is a pleasant 54-year-old male who comes in today for evaluation of neck pain, the occasional shooting pain into his bilateral upper extremities, and a wrapping pain localized near the sternum/epigastric area. In terms of his wrapping pain, initially I had thought that this may be related to a gastric ulcer, as he describes it as worsening when he eats, and also discloses fairly extensive ibuprofen use for the past few years, however he reports that this severe pain is burning in nature and has been ongoing since before he began using ibuprofen. He was worked up fairly extensively by Dr. Teresa for this issue, who ordered a battery of labs to rule out pancreatitis. He last suggested that the patient see his primary care to discuss possible common bile duct stenosis. I would like to order the patient a thoracic MRI to rule out a nerve root impingement which could be causing this wrapping type pain that he describes near the epigastric area. This may represent a disc herniation or nerve impingement around T4-6. In terms of his neck pain, it sounds like it is related to the severe compression seen on MRI imaging, and some of his symptoms represent the beginnings of myelopathy, despite a lack of myelopathic reflexes on examination today. I would like to send the patient for a cervical spine CT scan to evaluate for auto fusion at the levels where his compression is notably the worst. After his CT scan is complete I would like him to follow up in clinic with Dr. García for subsequent examination, evaluation, and potential surgical recommendations. Thank you for allowing us to care for your patient. The total time spent with this visit with this patient was 65 minutes reviewing history, physical exam, MRI imaging review, and implementation of treatment plan or further diagnostic testing Jarvis García MD,PhD [facility] Orders: Orders CT cervical spine wo IV con Today M54.12 - Radiculopathy, cervical region MR thoracic spine wo con Today M54.14 - Radiculopathy, thoracic region Coding Level of Care Code New Pt Level 5 (37325) Diagnoses Cervical radiculopathy M54.12
--- OUTSIDE RECORDS SUMMARY | 2024-11-11 16:20 | XMS_ITS | Clinical Summary ---
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 PVD (peripheral vascular dis ease) ([facility] V24) 01/30/2017 DX:PVD (peripheral vascular disease) ([facility]) Pes planus 01/30/2017 DX:Pes planus Uncontrolled type [...] mmol/L LAB CHEMISTRY METHOD 06/17/2024 10:55 AM [facility] Potassium 3.9 3.5 - 5.5 mmol/L LAB CHEMISTRY METHOD 06/17/2024 10:55 AM [facility] Chloride 104 96 - 110 mmol/L LAB CHEMISTRY METHOD 06/17/2024 10:55 AM [facility] CO2 30 21 - 32 mmol/L LAB CHEMISTRY METHOD 06/17/2024 10:55 AM [facility] Anion Gap 4 3 - 11 LAB CHEMISTRY METHOD 06/17/2024 10:55 AM [facility] Glucose 238(H) 70 - 100 mg/dL LAB CHEMISTRY METHOD 06/17/2024 10:55 AM [facility] BUN 14 5 - 25 mg/dL LAB CHEMISTRY METHOD 06/17/2024 10:55 AM [facility] Creatinine 0.88 0.70 - 1.30 mg/dL LAB CHEMISTRY METHOD 06/17/2024 10:55 AM [facility] eGFR 103 >=60 mL/min/1. 73m2 LAB CHEMISTRY METHOD 06/17/2024 10:55 AM [facility] Comment:Calculation based on the Chronic Kidney Disease Epidemiology Collaboration (CKD-EPI) equation refit without adjustment for race. BUN/Creatinine Ratio 15.9 LAB CHEMISTRY METHOD 06/17/2024 10:55 AM [facility] Calcium 9.7 8.5 - 10.5 mg/dL LAB CHEMISTRY METHOD 06/17/2024 10:55 AM [facility] AST (SGOT) 9(L) 10 - 42 unit/L LAB CHEMISTRY METHOD 06/17/2024 10:55 AM [facility] ALT (SGPT) 26 10 - 60 unit/L LAB CHEMISTRY METHOD 06/17/2024 10:55 AM [facility] Alkaline Phosphatase 129(H) 42 - 121 unit/L LAB CHEMISTRY METHOD 06/17/2024 10:55 AM [facility] Total Protein 7.4 6.0 - 8.0 g/dL LAB CHEMISTRY METHOD 06/17/2024 10:55 AM [facility] Albumin 3.5 3.2 - 5.0 g/dL LAB CHEMISTRY METHOD 06/17/2024 10:55 AM [facility] Total Bilirubin 0.3 0.0 - 1.4 mg/dL LAB CHEMISTRY METHOD 06/17/2024 10:55 AM [facility] Blood Venous blood specimen / Unknown Venipuncture / Unknown 06/17/2024 10:12 AM EDT 06/17/2024 10:17 AM EDT Parker Doty MD LAB BLOOD ORDERABLES Final Resu lt [facility] [address] [place] [address], from Last 3 Months or Most Recently Relevant to Health Maintenance Insurance [facility] Care Teams Cushion Maker Relationship Specialty Start Date End [place] [address] PCP - General Internal Medicine 02/15/24
--- OUTSIDE RECORDS SUMMARY | 2024-11-11 16:20 | XMS_ITS | Clinical Summary ---
Author Organization [employer] [facility] Address [address] [place] [address] Phone Care Team Providers Care Rn Orthopaedic Name Role Phone King Bowser MD Unavailable [phone] Mane Hahn MD Primary Care Provider Allergies [...] topic Medical Devices Not on file Insurance [employer] [address] [place], [place] [id number] [address] [place], [place] [id number] [place] Care Teams Rn Orthopaedic Relationship Specialty Start Date End Date King Bowser MD [address] [place] [address] PCP - Resident PCP 09/03/13 Mane Hahn MD [address] [place] [address] PCP - General Hematology 11/18/14 Additional Source Comments The information contained in this document represents components of the legal health record. It is not the complete legal health record.[facility]
--- OUTSIDE RECORDS SUMMARY | 2024-11-11 16:20 | XMS_ITS | Clinical Summary ---
[facility] Address [address] [place] [address] Care Team Providers Care Night Supervisor Name Role Phone Jonel Ramirez MD Primary Care Provider [phone] Allergies Active Allergy Reactions Criticality Noted Date [...] age to complete this topic Care Teams Night Supervisor Relationship Specialty Start Date End Date Jonel Ramirez MD [address] [place] [address] PCP - General Internal Medicine 08/21/18
== END 2024-11-11 14:50 | disposition home or self-care (01) ==
LOC: HO.HNS 13:57
PROVIDERS: Referring Provider Anesthesiology; Visit Provider Physician Assistant
DX: M54.12 Radiculopathy, cervical region (principal)
CPT/HCPCS: 99205

== ENCOUNTER → 2024-11-11 13:56 | Outpatient (BNVA) | payer OTHER, SELFPAY | PROVIDERS: Referring Provider Anesthesiology; Visit Provider Physician Assistant | DX: M54.2 Cervicalgia (principal); R10.13 Epigastric pain; M54.12 Radiculopathy, cervical region; R20.0 Anesthesia of skin; F17.210 Nicotine dependence, cigarettes, uncomplicated | CPT/HCPCS: 99202 ==

== ENCOUNTER → 2024-12-15 09:32 | Outpatient (BNV) | payer OTHER, SELFPAY | PROVIDERS: Visit Provider General Practice | DX: M54.14 Radiculopathy, thoracic region (principal); M51.34 Other intervertebral disc degeneration, thoracic region; M48.04 Spinal stenosis, thoracic region | CPT/HCPCS: 72146 ==

== ENCOUNTER 2024-12-15 09:33 | Outpatient (REF) | payer OTHER, SELFPAY ==
--- OUTSIDE RECORDS SUMMARY | 2024-12-15 09:39 | XMS_ITS | Clinical Summary ---
Author Organization [employer] [facility] Address [address] [place] [address] Phone Care Team Providers Care Manager In Training Name Role Phone King Bowser MD Unavailable [phone] Mane Hahn MD Primary Care Provider Allergies [...] of 2) 2021 LIPID PANEL 07/24/2022 07/24/2017 INFLUENZA VACCINE (#1) 2024 9, 01/30/2017, 02/07/2012 COVID-19 VACCINE (3 - 2024-2 6 season) 2024 10/29/2020, 10/07/2020 Adult Td,Tdap Booster 02/12/2029 02/12/2019 RSV VACCINE (1 - 1-dose 75+ series) 2046 HEPATITIS A VACCINES Aged Out No long [...] topic Medical Devices Not on file Insurance [employer] Care Teams Manager In Training Relationship Specialty Start Date End Date King Bowser MD [address] [place] [address] PCP - Resident PCP 09/03/13 Mane Hahn MD [address] [place] [address] PCP - General Hematology 11/18/14 Additional Source Comments The information contained in this document represents components of the legal health record. It is not the complete legal health record.[facility]
--- OUTSIDE RECORDS SUMMARY | 2024-12-15 09:39 | XMS_ITS | Clinical Summary ---
[facility] Address [address] [place] [address] Care Team Providers Care Annealing Operator Name Role Phone Jonel Ramirez MD Primary Care Provider [phone] Allergies Active Allergy Reactions Criticality Noted Date [...] age to complete this topic Care Teams Annealing Operator Relationship Specialty Start Date End Date Jonel Ramirez MD [address] [place] [address] PCP - General Internal Medicine 08/21/18
--- OUTSIDE RECORDS SUMMARY | 2024-12-15 09:39 | XMS_ITS | Clinical Summary ---
Author Organization [facility] Address [address] [place] [address] Phone Care Team Providers Care Infant Childcare Provider Name Role Phone Chase Sykes MD Primary [...] History Medical History Date Comments Substance abuse ([facility] V24 , [facility] V28) 01/30/2017 DX:Substance abuse ([facility]); 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 PVD (peripheral vascular dis ease) ([facility] V24) 01/30/2017 DX:PVD (peripheral vascular disease) ([facility]) Pes planus 01/30/2017 DX:Pes planus Uncontrolled type 2 diabetes mellitus without complication, without long-term current use of insulin 01/31/2017 DX:Uncontrolled type 2 diabe nate mellitus without complication, without long-term current use of insulin HLD (hyperlipidemia) 07/24/2017 DX:HLD (hyp erlipidemia) TMJ (temporomandibular joint disorder) DX:TMJ (temporomandibular joint disorder) Tobacco abuse 11/24/2018 [...] Health Maintenance Due Date Last Done Comments Colorectal Cancer Screening: Colonoscopy 1971 Diabetes: Annual Foot Exam 1981 Diabetes: Annual Retina Eye Exam 1981 Hepatitis A Vaccines (1 of 2 - Risk 2-dose series) 1990 Hepatitis B Vaccines (1 of 3 - 19+ 3-dose series) 1990 Pneumococcal Vaccine: 50+ Years (2 of 2 - PCV) 04/25/2018 04/25/2017, 09/20/2014 Zoster Vaccines (1 of 2) 2021 HIV Screening 02/05/2022 Social Influencers of Health Screening 02/05/2022 Diabetes: Annual Urine Albumin-Creatinine Ratio (uACR) 05/05/2023 05/04/2022 Depression Screening 03/06/2024 Diabetes: Blood Sugar Control Test (HGBA1C) 09/04/2024 03/07/2024, 01/02/2024 COVID-19 Vaccine ( season) 2024 10/29/2020, 10/07/2020 Influenza Vaccine (#1) 2024 9, 01/30/2017, 02/19/2016, Additional history exists Diabetes: Annual GFR (Glomerular Filtration Rate) 06/17/2025 06/17/2024, 05/26/2024, 03/07/2024, Additional history exists Cholesterol Screening (Lipid Panel) 05/05/2027 05/04/2022 DTaP,Tdap,and Td Vaccines (3 - Td or Tdap) 02/12/2029 02/12/2019, 10/19/2009 RSV Immunization Adult Patients (1 - 1-dose 75+ series) 2046 Hepatitis C Screening Completed 11/18/2021 HIB Vaccines [...] mmol/L LAB CHEMISTRY METHOD 06/17/2024 10:55 AM [facility] Potassium 3.9 3.5 - 5.5 mmol/L LAB CHEMISTRY METHOD 06/17/2024 10:55 AM [facility] Chloride 104 96 - 110 mmol/L LAB CHEMISTRY METHOD 06/17/2024 10:55 AM [facility] CO2 30 21 - 32 mmol/L LAB CHEMISTRY METHOD 06/17/2024 10:55 AM [facility] Anion Gap 4 3 - 11 LAB CHEMISTRY METHOD 06/17/2024 10:55 AM [facility] Glucose 238(H) 70 - 100 mg/dL LAB CHEMISTRY METHOD 06/17/2024 10:55 AM [facility] BUN 14 5 - 25 mg/dL LAB CHEMISTRY METHOD 06/17/2024 10:55 AM [facility] Creatinine 0.88 0.70 - 1.30 mg/dL LAB CHEMISTRY METHOD 06/17/2024 10:55 AM [facility] eGFR 103 >=60 mL/min/1. 73m2 LAB CHEMISTRY METHOD 06/17/2024 10:55 AM [facility] Comment:Calculation based on the Chronic Kidney Disease Epidemiology Collaboration (CKD-EPI) equation refit without adjustment for race. BUN/Creatinine Ratio 15.9 LAB CHEMISTRY METHOD 06/17/2024 10:55 AM [facility] Calcium 9.7 8.5 - 10.5 mg/dL LAB CHEMISTRY METHOD 06/17/2024 10:55 AM T [facility] AST (SGOT) 9(L) 10 - 42 unit/L LAB CHEMISTRY METHOD 06/17/2024 10:55 AM T [facility] ALT (SGPT) 26 10 - 60 unit/L LAB CHEMISTRY METHOD 06/17/2024 10:55 AM T [facility] Alkaline Phosphatase 129(H) 42 - 121 unit/L LAB CHEMISTRY METHOD 06/17/2024 10:55 AM EDT [facility] Total Protein 7.4 6.0 - 8.0 g/dL LAB CHEMISTRY METHOD 06/17/2024 10:55 AM [facility] Albumin 3.5 3.2 - 5.0 g/dL LAB CHEMISTRY METHOD 06/17/2024 10:55 AM [facility] Total Bilirubin 0.3 0.0 - 1.4 mg/dL LAB CHEMISTRY METHOD 06/17/2024 10:55 AM T [facility] Blood Venous blood specimen / Unknown Venipuncture / Unknown 06/17/2024 10:12 AM EDT 06/17/2024 10:17 AM EDT us Parker Doty MD LAB BLOOD ORDERABLES Final Resu lt [facility] [address] [place] [address], from Last 3 Months or Most Recently Relevant to Health Maintenance Insurance [facility] [facility] Care Teams Infant Childcare Provider Relationship Specialty Start Date End Date Chaes Sykes MD [address] [place] [address] PCP - General Internal Medicine 02/15/24
== END 2024-12-15 09:34 | disposition home or self-care (01) ==
LOC: HO.MRI 09:33
PROVIDERS: Visit Provider Physician Assistant
DX: M54.14 Radiculopathy, thoracic region (principal)
CPT/HCPCS: 72146

== ENCOUNTER 2025-01-14 06:19 | Outpatient (REF) | payer OTHER, SELFPAY ==
--- NOTE | ~2025-01-14 | FL_ITS ---
EXAMINATION: FLUOROSCOPY GUIDANCE FOR NEEDLE PLACEMENT CLINICAL INFORMATION: M47.812 - Spondylosis without myelopathy or radiculopathy, cervical region COMPARISON: None available. TECHNIQUE: Fluoroscopic guidance divided for pain management procedure. FINDINGS: Images demonstrate needle placement and contrast injection adjacent to the bilateral lateral cervical spine. See procedure note for detailed findings. FLUOROSCOPY TIME: 50 seconds DOSE AREA PRODUCT: 1376 mgy/centimeters squared. 10 saved fluoroscopic images FL/FL guidance in treatment room IMPRESSION: Fluoroscopy guidance for pain management procedure. Electronically signed by: Yeal Alfonso MD 01/14/2025 02:27 PM [facility]
--- OUTSIDE RECORDS SUMMARY | 2025-01-14 06:22 | XMS_ITS | Clinical Summary ---
Author Organization [employer] [facility] Address [address] [place] [phone] Phone Care Team Providers Care Accounts Receivable Bookkeeper Name Role Phone King Bowser MD Unavailable [phone] Mane Hahn MD Primary Care Provider Allergies [...] patient's age to complete this topic IPV VACCINES Aged Out No longer eligi ble based on patient's age to complete this topic MENINGOCOCCAL VACCINES (ACWY) Aged Out No longer eligible based on patient's age to complete this topic MENINGOCOCCAL VACCINES (B) Aged Out N o longer eligible based on patient's age to complete this topic Medical Devices Not on file Insurance [address] [place] [address] [place] [address] [place] [address] [employer]. [employer] Care Teams Accounts Receivable Bookkeeper Relationship Specialty Start Date End Date King Bowser MD [address] [place] [address] PCP - Resident PCP 09/03/13 Mane Hahn MD [address] [place] [address] PCP - General Hematology 11/18/14 Additional Source Comments The information contained in this document represents components of the legal health record. It is not the complete legal health record.[facility]
--- OUTSIDE RECORDS SUMMARY | 2025-01-14 06:22 | XMS_ITS | Clinical Summary ---
Author Organization [facility] Address [address] [place] [address] Phone Care Team Providers Care Human Factors Scientist Name Role Phone Chase Sykes MD Primary [...] History Medical History Date Comments Substance abuse ([facility] V24 , [facility] V28) 01/30/2017 DX:Substance abuse ([facility]); 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 PVD (peripheral vascular dis ease) ([facility] V24) 01/30/2017 DX:PVD (peripheral vascular disease) ([facility]) Pes planus 01/30/2017 DX:Pes planus Uncontrolled [...] of 2 - PCV) 04/25/2018 04/25/2017, 09/20/2014 RSV Immunization Adult Patients (1 - Risk 50-74 years 1-dose series) 2021 Zoster Vaccines (1 of 2) 2021 HIV [...] 10:55 AM [facility] Potassium 3.9 3.5 - [...] LAB CHEMISTRY METHOD 06/17/2024 10:55 AM T [facility] Alkaline Phosphatase 129(H) 42 - 121 unit/L LAB CHEMISTRY METHOD 06/17/2024 10:55 AM EDT [facility] Total Protein 7.4 6.0 - 8.0 g/dL LAB CHEMISTRY METHOD 06/17/2024 10:55 AM [facility] Albumin 3.5 3.2 - 5.0 g/dL LAB CHEMISTRY METHOD 06/17/2024 10:55 AM [facility] Total Bilirubin 0.3 0.0 - 1.4 mg/dL LAB CHEMISTRY METHOD 06/17/2024 10:55 AM T [facility] Blood Venous blood specimen / Unknown Venipuncture / Unknown 06/17/2024 10:12 AM EDT 06/17/2024 10:17 AM EDT us Parker Doty MD LAB BLOOD ORDERABLES Final Resu lt [facility] [address] [place] [address], from Last 3 Months or Most Recently Relevant to Health Maintenance Insurance [facility] [employer] Care Teams Human Factors Scientist Relationship Specialty Start Date End Date Chase Sykes MD [address] [place] [address] PCP - General Internal Medicine 02/15/24
== END 2025-01-14 06:20 | disposition home or self-care (01) ==
LOC: CF 06:19
PROVIDERS: Visit Provider Anesthesiology
DX: M47.812 Spondylosis without myelopathy or radiculopathy, cervical region (principal)
CPT/HCPCS: 64490; 64491; J2003; J2795; Q9967

== ENCOUNTER 2025-01-14 12:39 | Outpatient (AMB) | payer OTHER, SELFPAY ==
[2025-01-14 12:49] VITALS: BP 159/79; PULSE 87; RESP 16; O2SAT 96; BMI 35.7
--- NOTE | 2025-01-14 12:49 | MHC.OFFVIS ---
Vital Signs 01/14/25 12:49 01/14/25 13:29 Height 5 ft 10 in Weight 249 lb BMI 35.7 BP 159/79 H 172/79 H Blood Pressure Location Lt brachial Lt brachial Position Sitting Sitting Respiration 16 16 Pulse 87 87 Pulse Source Pulse Oximeter Pulse Oximeter Pulse Oximetry (%) 96 96 Oxygen Delivery Method Room Air Room Air Intake Visit Reasons: Bilateral Diagnostic C4-C5-C6 MBB Allergies No Known Allergies Allergy (Verified 11/11/24 14:05) Physical Exam Vital Signs: Last Vital Signs Pulse 87 01/14/25 12:49 Resp 16 01/14/25 12:49 BP 159/79 H 01/14/25 12:49 Pulse Ox 96 01/14/25 12:49 Oxygen Delivery Method Room Air 01/14/25 12:49 BMI result Body Mass Index 35.7 Assessment & Plan Assessment & Plan (1) Spondylosis of cervical spine: Code(s): M47.812 - Spondylosis without myelopathy or radiculopathy, cervical region Category: Medical Plan Diagnostic medial branch block C4- C5- C6 bilateral. ? ?Informed consent was explained to the patient. All questions were explained and? answered.? The patient was taken inside the operating room where he was positioned prone on the operating table. Time-out was performed delineating correct site, side, the nature of the procedure, patient's allergy, . All operating room staff was participating in OR time-out procedure. ? ? The the upper back and posterior neck was prepped with ChloraPrep and draped with sterile towels.? C-arm was brought over the operating field and sq picture of C4- C5- C6 vertebra were delineated on the screen.? Point of interest were delineated as lateral masses of the vertebras as above with the bilateral waist of each lateral mass as the target of the final needle position.? The projection of the point of interest to the skin were injected with the small amount of local anesthetic lidocaine 2% mixed with ropivacaine 0.5% 1-1 approximately 1 cc.? After that three 22 gauge 3.5 inch spinal needles were driven sequentially to the points of interest in tunnel vision fashion first on the right and after that on the left.. Lateral view demonstrating appropriate needles positioned. At the point of interests the needle was injected with small amount of the contrast.? The injection of the contrast did not demonstrate any intravascular or intrathecal spread of the contrast.? After that injection of the?ropivacaine 0.5%-1ccof was performed at each needle location.?? after that the needles were removed and Bandaids were applied. Patient tolerated the procedure well she was taken outside of the operating room to recovery room. Orders: Orders FL guidance in treatment room Today M47.812 - Spondylosis without myelopathy or radiculopathy, cervical region Coding Level of Care Code Procedure Only Diagnoses Spondylosis of cervical spine M47.812
[2025-01-14 13:29] VITALS: BP 172/79; PULSE 87; RESP 16; O2SAT 96
== END 2025-01-14 13:30 | disposition home or self-care (01) ==
LOC: HO.PMCPRC 12:39
PROVIDERS: Visit Provider Anesthesiology
DX: M47.812 Spondylosis without myelopathy or radiculopathy, cervical region (principal)
CPT/HCPCS: 64490; 64491

== ENCOUNTER 2025-01-16 09:21 | Outpatient (AMB) | payer OTHER, SELFPAY ==
--- NOTE | 2025-01-16 09:22 | A.OFFVIS_ITS ---
Vital Signs 01/16/25 09:28 Height 5 ft 10 in Weight 255 lb BMI 36.6 BP 162/79 H Blood Pressure Location Rt brachial Position Sitting Respiration 16 Pulse 92 Pulse Source Pulse Oximeter Pulse Oximetry (%) 92 Oxygen Delivery Method Room Air Intake Visit Reasons: S/P Bilateral Diagnostic C4-C5-C6 MBB Time Stamp Assembler Required: No Accompanied by: Self / Same As Patient Allergies No Known Allergies Allergy (Verified 01/16/25 09:29) HPI Comments Details: Kieran is back in my office after diagnostic medial branch block C4-C5 C6 bilateral. He reports pain before the procedure was 10/10. He reports severe cervicalgia. After the procedure his pain decreased 50% and went down to 5/10. For full 6 hours after the procedure patient felt much better mobility of his neck. Next day after the procedure pain went down to 3/10. Mobility of the patient's neck even improved. In my opinion this patient will greatly benefit from sprint PNS. However the insurance company of this patient [employer] does not cover sprint PNS considering this procedure experimental and investigational. I offered the patient to receive diagnostic and therapeutic medial branch block C4-C5 C6 bilateral using dexamethasone as the steroid medication. Patient is brittle diabetic and he will suffer from exacerbation of the diabetes if we will use triamcinolone for the procedure. Prior: report of the MRI he had done at [facility]. The full report of the MRI dictated as below. It is very prominent for multilevel severe foraminal stenosis and moderate spinal canal stenosis. At the same time role of spondylosis in his pain syndrome can not be excluded. I schedule him for diagnostic medial branch block, C4-C5 C6 bilateral. He requests me to send him for 2nd opinion with neurosurgeon. I need to send him for fresh MRI to perform this consult because his MRI is 9-month-old. Prior: complains on pain in the posterior neck with radiation into bilateral shoulders as well as radiation into the or coinciding with pain in the epigastric area with radiation into bilateral under costal area as well as radiation into the lower thoracic spine. He reports that this pain started in 2018 when he hit his head against the metal door. He reports that abdominal pain also increases after greasy meals. Bowel movements not aggravate his pain in the abdomen. Flexing head forward and flexing had backwards aggravate the pain in the neck. Because of his pain he can not sleep normally can not do activities of daily living can not take care of himself he can not function normally. For his neck pain he went for multiple serious of physical therapy with no improvement. In fact physical therapy last time made his pain worse. He went for images of the cervical spine and it demonstrated bulging discs ?. He reports today that he has at home multiple images reports but he forgot to bring them with him today. He reports that he had multiple steroid injections with [facility] pain management those were steroid injections in his neck, he reported that it send his hemoglobin A1c to numbers above 9. He is very cautious about accepting steroid injections. His past medical history significant for diabetes reports that it is diet controlled. Past surgical history significant for ankle arthrodesis secondary to fracture, no other surgeries. He admits smoking cigarettes less than 1 pack per day. He drinks 5 cans of beer every other week, he admits coffee and caffeinated beverages but not soda, he admits cannabis he states that 1 joint lasts 3 days for him. Review of Systems Const All systems reviewed & are unremarkable except as noted in HPI and below ENT Reports Normal hearing present Neuro Reports Normal hearing present, Denies Abnormal speech present, Denies confusion and Denies Sensory deficit (Neuro) Psych Denies confusion Physical Exam Vital Signs: Last Vital Signs Pulse 92 01/16/25 09:28 Resp 16 01/16/25 09:28 BP 162/79 H 01/16/25 09:28 Pulse Ox 92 01/16/25 09:28 Oxygen Delivery Method Room Air 01/16/25 09:28 BMI result Body Mass Index 36.6 Const General: no acute distress; No confusion Orientation/consciousness: patient oriented x3 and No confusion Eyes General: appearance normal, both eyes and all related structures Pupils: Equal, round and reactive pupils present EOM: EOMs intact bilaterally Neck Other: Limited range of motion of the cervical spine. Axial compression aggravates the pain, flexing had backwards aggravate the pain. Chest Chest palpation & inspection: normal inspection of the chest Resp Effort & Inspection: normal respiratory effort, able to speak in complete sentences, normal respiratory pattern, no audible wheezes and no cough Cardio Jugular venous distension: no JVD GI Other: Minor tenderness on palpation in the projection of the epigastric area, no guarding, no rebound. On percussion the liver is 3 cm below the costal margin. Nontender on palpation. Inspection: Yes normal to inspection Neuro General: patient oriented x3, gait normal and No confusion Cranial nerves: Yes CN's II-XII intact bilaterally, Yes Equal, round and reactive pupils present, Yes Normal hearing present and Yes Ability to bilaterally elevate shoulders present Speech: No Abnormal speech present Gait exam (Neuro): Normal gait present Motor exam (neuro): 5/5 motor strength present throughout Sensory Exam: No Sensory deficit (Neuro) Extrem General: No pedal edema Psych Speech and movement: Normal speech and movement present Affect: normal affect Attitude: cooperative Thought process: Normal thought process present Thought content: Normal thought content present Insight: Good insight present (Psych) Judgement: Good judgement present (Psych) Results Reviewed Results Reviewed: Cervical spine MRI [facility] 01/22/2024. Findings: Cervical lordosis is straightened. Thoracic kyphosis is maintained. Vertebral body heights are preserved. Abnormal marrow signal throughout the cervical and thoracic spine with T2 star hyperintensity most notable at the C4- T1 and T8-T9 vertebral bodies. Slight increased since prior of MRI of 2022. Multifocal areas of T1 and T2 hypointensity suggest sclerosis. Partial disc space height loss and disc desiccation throughout the cervical and thoracic spine. Evaluation of the cord signal abnormalities is limited although no definite focal signal abnormalities present. Suggestion of the congenital narrowing of the spinal canal. Superimposed posterior disc osteophyte complex disease uncovertebral and facet arthropathy throughout the cervical spine resulting in canal and foraminal narrowing described below. C2-C3: Mild canal narrowing moderate right foraminal narrowing. C3-C4 moderate canal narrowing: Severe bilateral foraminal narrowing, right worse than left. C4-C5 moderate canal narrowing. Severe bilateral foraminal narrowing. C5-C6: Moderate canal narrowing. Severe bilateral foraminal narrowing right worse than left. C6-C7 moderate canal narrowing. Severe bilateral foraminal narrowing. C7-T1 moderate canal narrowing. Moderate to severe bilateral foraminal narrowing. Small multilevel disc and facet arthropathy results in mild multilevel canal narrowing throughout the thoracic spine. Up to moderate narrowing of the right T2-T3 right T3-T4 right T4-T5 right T6-T7 bilateral T7-T8 right T8-T9 and right T11-T12 foramina. Narrowing is greatest at right T2- T3 and T3-T4 and bilateral T7-T8. Assessment & Plan Assessment & Plan (1) Chronic abdominal pain: Code(s): R10.9 - Unspecified abdominal pain; G89.29 - Other chronic pain Category: Medical (2) Spondylosis of cervical spine: Code(s): M47.812 - Spondylosis without myelopathy or radiculopathy, cervical region Category: Medical Plan: Good results of the diagnostic medial branch block C4-C5 C6. I will schedule him for therapeutic C4-C5 C6 medial branch block. In my opinion the best procedure for him as sprint PNS however his insurance company consider this experimental and investigational. I will use dexamethasone for injection because the patient is brittle diabetic. With a short neck and massive shoulders radiofrequency ablation of the medial branches of this patient in my opinion might be overtly dangerous. (3) Chronic pain syndrome: Code(s): G89.4 - Chronic pain syndrome Category: Medical Plan Next time the patient will be seen in this office after therapeutic C4-C5 C6 medial branch block bilateral. Coding Level of Care Code Est Pt Level 3 (09529) Diagnoses Chronic abdominal pain R10.9; G89.29 Spondylosis of cervical spine M47.812 Chronic pain syndrome G89.4
[2025-01-16 09:28] VITALS: BP 162/79; PULSE 92; RESP 16; O2SAT 92; BMI 36.6
--- OUTSIDE RECORDS SUMMARY | 2025-01-16 10:39 | XMS_ITS | Clinical Summary ---
Author Organization [employer] [facility] Address [address] [place] [address] Phone Care Team Providers Care Speech Communication Instructor Name Role Phone King Bowser MD Unavailable [phone] Mane Hahn MD Primary Care Provider Allergies [...] topic Medical Devices Not on file Insurance [address] [place], [place] [address] [address] [place] [address] [employer]. [employer] Care Teams Speech Communication Instructor Relationship Specialty Start Date End Date King Bowser MD [address] [place] [address] PCP - Resident PCP 09/03/13 Mane Hahn MD [address] [place] [address] PCP - General Hematology 11/18/14 Additional Source Comments The information contained in this document represents components of the legal health record. It is not the complete legal health record.[facility]
--- OUTSIDE RECORDS SUMMARY | 2025-01-16 10:39 | XMS_ITS | Clinical Summary ---
Author Organization 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 PVD (peripheral vascular dis ease) ([facility] V24) 01/30/2017 DX:PVD (peripheral vascular disease) ([facility]) Pes planus 01/30/2017 DX:Pes planus Uncontrolled [...] mmol/L LAB CHEMISTRY METHOD 06/17/2024 10:55 AM [facility] Potassium 3.9 3.5 - 5.5 mmol/L LAB CHEMISTRY METHOD 06/17/2024 10:55 AM [facility] Chloride 104 96 - 110 mmol/L LAB CHEMISTRY METHOD 06/17/2024 10:55 AM [facility] CO2 30 21 - 32 mmol/L LAB CHEMISTRY METHOD 06/17/2024 10:55 AM [facility] Anion Gap 4 3 - 11 LAB CHEMISTRY METHOD 06/17/2024 10:55 AM [facility] Glucose 238(H) 70 - 100 mg/dL LAB CHEMISTRY METHOD 06/17/2024 10:55 AM [facility] BUN 14 5 - 25 mg/dL LAB CHEMISTRY METHOD 06/17/2024 10:55 AM [facility] Creatinine 0.88 0.70 - 1.30 mg/dL LAB CHEMISTRY METHOD 06/17/2024 10:55 AM [facility] eGFR 103 >=60 mL/min/1. 73m2 LAB CHEMISTRY METHOD 06/17/2024 10:55 AM [facility] Comment:Calculation based on the Chronic Kidney Disease Epidemiology Collaboration (CKD-EPI) equation refit without adjustment for race. BUN/Creatinine Ratio 15.9 LAB CHEMISTRY METHOD 06/17/2024 10:55 AM [facility] Calcium 9.7 8.5 - 10.5 mg/dL LAB CHEMISTRY METHOD 06/17/2024 10:55 AM [facility] AST (SGOT) 9(L) 10 - 42 unit/L LAB CHEMISTRY METHOD 06/17/2024 10:55 AM [facility] ALT (SGPT) 26 10 - 60 unit/L LAB CHEMISTRY METHOD 06/17/2024 10:55 AM T [facility] Alkaline Phosphatase 129(H) 42 - 121 unit/L LAB CHEMISTRY METHOD 06/17/2024 10:55 AM EDT [facility] Total Protein 7.4 6.0 - 8.0 g/dL LAB CHEMISTRY METHOD 06/17/2024 10:55 AM [facility] Albumin 3.5 3.2 - 5.0 g/dL LAB CHEMISTRY METHOD 06/17/2024 10:55 AM [facility] Total Bilirubin 0.3 0.0 - 1.4 mg/dL LAB CHEMISTRY METHOD 06/17/2024 10:55 AM T [facility] Blood Venous blood specimen / Unknown Venipuncture / Unknown 06/17/2024 10:12 AM EDT 06/17/2024 10:17 AM EDT us Parker Doty MD LAB BLOOD ORDERABLES Final Resu lt [facility] [address] [place] [address], from Last 3 Months or Most Recently Relevant to Health Maintenance Insurance [facility] [employer] Care Teams Store Coordinator Relationship Specialty Start Date End Date Chase Sykes MD [address] [place] [address] PCP - General Internal Medicine 02/15/24
--- OUTSIDE RECORDS SUMMARY | 2025-01-16 10:39 | XMS_ITS | Clinical Summary ---
Author Organization [facility] Address [address] [place] [address] Care Team Providers Care Chicken Picker Name Role Phone Jonel Ramirez MD Primary Care Provider [phone] Allergies Active Allergy Reactions Criticality Noted Date [...] age to complete this topic Care Teams Chicken Picker Relationship Specialty Start Date End Date Jonel Ramirez MD [address] [place] [address] PCP - General Internal Medicine 08/21/18
== END 2025-01-16 09:38 | disposition home or self-care (01) ==
PROVIDERS: Visit Provider Anesthesiology
DX: M47.812 Spondylosis without myelopathy or radiculopathy, cervical region (principal); G89.4 Chronic pain syndrome; R10.9 Unspecified abdominal pain
CPT/HCPCS: 99213

== ENCOUNTER → 2025-01-16 09:21 | Outpatient (BNVA) | payer OTHER, SELFPAY | PROVIDERS: Visit Provider Anesthesiology | DX: M47.812 Spondylosis without myelopathy or radiculopathy, cervical region (principal); G89.4 Chronic pain syndrome | CPT/HCPCS: 99212 ==